=== PATIENT | female | born 1940 ===

== ENCOUNTER 2017-07-20 06:00 | Day surgery (SDC) | payer OTHER ==
[~2017-07-20] VITALS: Ht 157.5 cm; Wt 61.2 kg
[~2017-07-20 06:00] MED LIST: ATORVASTATIN CA40 MG PO; LISINOPRIL-HCT1 EAC2 PO; NORVASC5 MG PO; SYNTHROID50 MCG PO
== END 2017-07-21 18:00 | disposition home or self-care (01) ==
LOC: CIR.AMB 06:00 → O/R 06:00 → SURH 06:00 → EDSTATUS 13:30 → SURH 13:30 → OB/GYN 15:25 → O/R 15:25 → SURH 21:00 → CIR.AMB 07-21 18:00 → O/R 07-21 18:08 → OB/GYN 07-21 18:08
DX: C52 Malignant neoplasm of vagina (principal)